=== PATIENT | male | born 2000 | race Caucasian/White ===

== ENCOUNTER 2018-02-26 13:35 | Emergency (ER) | payer OTHER ==
--- NOTE | 2018-02-26 13:44 | EDPHY ---
HPI/HX/ROS/PE/MDM - Data Points Imaging: Discussed imaging studies w/ call box wirer Radiologist, I viewed and interpreted images myself Narrative: CHIEF COMPLAINT: Testicular and RLQ pain HPI: The patient is a 18 y/o male with a history of epilepsy arriving from [facility] for evaluation of right testicular pain and RLQ pain that he noticed upon waking this morning. Pain does not feel like it's radiating from his testicle to his abdomen. He denies dysuria or other urinary complaints. No history of abdominal surgeries. REVIEW OF SYSTEMS: A comprehensive 10 system review of systems is otherwise negative aside from elements mentioned in the history of present illness. PMH: Epilepsy SOCIAL HISTORY: [employer] student. PHYSICAL EXAM: General:Patient is alert, in no acute distress. ENT:Eyes are normal to inspection. ENT inspection normal. Neck: Normal inspection. Full range of motion. Respiratory:No respiratory distress. Breath sounds normal bilaterally. Cardiovascular: Regular rate and rhythm. Strong peripheral pulses. Normal cap refill. Abdomen:The abdomen is nontender to palpation. There are no peritoneal signs. : Right hemiscrotum mildly swollen and tender, normal cremaster reflex, no erythema or warmth. Back: Normal to inspection. No tenderness to palpation. Skin: Normal color. No rash. Warm and dry. Extremities: Normal appearance. Full range of motion. Neuro: Oriented x3. Normal motor function. Normal sensory function. (Willis Chester) ED Course: 18 y/o male with history of epilepsy who presents with a few-hour history of right testicle and RLQ pain upon waking this morning. He has a mildly swollen right hemiscrotum with overlying tenderness. Abdomen is benign and vitals are normal. Suspect primary testicular etiology vs. appendicitis. Plan for IV, labs , UA, testicular and RLQ US. Patient declined pain medication. (Willis Chester) MDM: Care assumed at 2:45 p.m. With plan for disposition after ultrasound. At 3:[address] Sequeira calls ultrasound as epididymitis, no torsion, appendix not visualized. Results discussed with the patient at 3:30 p.m.; clinically I do not think appendicitis is likely. Ceftriaxone 250 and doxycycline times 10 days, GC and chlamydia sent on his urine. He is sexually active but not for several months. Does not have urethral discharge. Advised nonsteroidal and supportive underwear. Urology follow-up if not improving. Differential for etiology discussed including but not limited to trauma, inflammatory, infectious. Abdomen soft and nontender on my exam. (Prashant Edwards) - Data Points Imaging Results: Imaging Impressions Testicular Ultrasound 02/26/18 13:39 Impression: 1. Suggestion of right epididymitis. 2. Left varicocele. 3. Small to moderate right hydrocele. 4. By ultrasound, the appendix appears unremarkable. Findings and recommendations discussed with Willis Chester MD at 1501 hour, 02/26/2018. Abdomen Ultrasound 02/26/18 13:52 Impression: 1. Suggestion of right epididymitis. 2. Left varicocele. 3. Small to moderate right hydrocele. 4. By ultrasound, the appendix appears unremarkable. Findings and recommendations discussed with Willis Chester MD at 1501 hour, 02/26/2018. Laboratory Results: Laboratory Results 02/26/18 13:50 02/26/18 13:50 02/26/18 02/26/18 02/26/18 13:50 13:50 13:50 WBC RBC Hgb Hct MCV MCH MCHC RDW Plt Count MPV Neut % (Auto) Lymph % (Auto) [place] % (Auto) Eos % (Auto) Baso % (Auto) Nucleat RBC Rel Count Absolute Neuts (auto) Absolute Lymphs (auto) Absolute Monos (auto) Absolute Eos (auto) Absolute Basos (auto) Absolute Nucleated RBC Immature Gran % Immature Gran # Sodium 139 mEq/L mEq/L (135-145) Potassium 4.2 mEq/L mEq/L (3.5-5.2) Chloride 104 mEq/L mEq/L (97-110) Carbon Dioxide 25 mEq/l mEq/l (22-31) Anion Gap 10 mEq/L mEq/L (6-14) BUN 12 mg/dL mg/dL (7-23) Creatinine 0.7 mg/dL mg/dL (0.7-1.3) Estimated GFR > 60 Glucose 94 mg/dL mg/dL (70-100) Calcium 10.1 mg/dL mg/dL (8.5-10.4) Urine Color PALE YELLOW Urine Appearance CLEAR Urine pH 8.0 H (5.0-7.5) Ur Specific [place] 1.005 (1.002-1.030) Urine Protein NEGATIVE (NEGATIVE) Urine Ketones NEGATIVE (NEGATIVE) Urine Blood NEGATIVE (NEGATIVE) Urine Nitrate NEGATIVE (NEGATIVE) Urine Bilirubin NEGATIVE (NEGATIVE) Urine Urobilinogen NEGATIVE EU EU (0.2-1.0) Ur Leukocyte Esterase NEGATIVE (NEGATIVE) Urine Glucose NEGATIVE (NEGATIVE) C.trachomatis RNA (TMA) Pending N.gonorrhoeae RNA (TMA) Pending 02/26/18 13:50 WBC 7.63 10^3/uL 10^3/uL (3.80-9.50) RBC 5.28 10^6/uL 10^6/uL (4.40-6.38) Hgb 15.5 g/dL g/dL (13.7-17.5) Hct 46.0 % % (40.0-51.0) MCV 87.1 fL fL (81.5-99.8) MCH 29.4 pg pg (27.9-34.1) MCHC 33.7 g/dL g/dL (32.4-36.7) RDW 14.9 % % (11.5-15.2) Plt Count 295 10^3/uL 10^3/uL (150-400) MPV 9.6 fL fL (8.7-11.7) Neut % (Auto) 61.3 % % (39.3-74.2) Lymph % (Auto) 28.2 % % (15.0-45.0) [place] % (Auto) 9.0 % % (4.5-13.0) Eos % (Auto) 0.7 % % (0.6-7.6) Baso % (Auto) 0.7 % % (0.3-1.7) Nucleat RBC Rel Count 0.0 % % (0.0-0.2) Absolute Neuts (auto) 4.68 10^3/uL 10^3/uL (1.70-6.50) Absolute Lymphs (auto) 2.15 10^3/uL 10^3/uL (1.00-3.00) Absolute Monos (auto) 0.69 10^3/uL 10^3/uL (0.30-0.80) Absolute Eos (auto) 0.05 10^3/uL 10^3/uL (0.03-0.40) Absolute Basos (auto) 0.05 10^3/uL 10^3/uL (0.02-0.10) Absolute Nucleated RBC 0.00 10^3/uL 10^3/uL (0-0.01) Immature Gran % 0.1 % % (0.0-1.1) Immature Gran # 0.01 10^3/uL 10^3/uL (0.00-0.10) Sodium Potassium Chloride Carbon Dioxide Anion Gap BUN Creatinine Estimated GFR Glucose Calcium Urine Color Urine Appearance Urine pH Ur Specific [place] Urine Protein Urine Ketones Urine Blood Urine Nitrate Urine Bilirubin Urine Urobilinogen Ur Leukocyte Esterase Urine Glucose C.trachomatis RNA (TMA) N.gonorrhoeae RNA (TMA) Medications Given: Discontinued Medications Ibuprofen (Motrin) 600 mg PO EDNOW ONE Stop: 02/26/18 15:38 Last Admin: 02/26/18 15:45 Dose: 600 mg General Time Seen by Provider: 02/26/18 13:39 Initial Vital Signs: Initial Vital Signs Temperature (C) 36.5 C 02/26/18 13:36 Heart Rate 68 02/26/18 13:36 Respiratory Rate 16 02/26/18 13:36 Blood Pressure 125/67 H 02/26/18 13:36 O2 Sat (%) 98 02/26/18 13:36 O2 Delivery Mode Room Air Allergies/Adverse Reactions: No Known Allergies Allergy (Unverified 02/26/18 13:39) Home Medications: Medication Instructions Recorded Divalproex ER [Depakote ER 500 MG 1,000 mg PO DAILY 02/26/18 (*)] Doxycycline Hyclate [Doxycycline] 100 mg PO BID #20 cap 02/26/18 Ethosuximide 250 mg PO 02/26/18 Departure - Departure Disposition: Home, Routine, Self-Care Clinical Impression: Epididymitis Condition: Good Instructions: Epididymitis (ED) Referrals: rCistobal Devi MD [Medical Doctor] - 3-4 days, if not improved Prescriptions: Doxycycline Hyclate [Doxycycline] 100 mg PO BID #20 cap Report Scribed for: Willis Chester Report Scribed by: Arabella Park Date of Report: 02/26/18 Time of Report: 13:49 Physician Review and Approval Statement: Portions of this note were transcribed by an ED scribe. I personally performed the history, physical exam, and medical decision making; and confirm the accuracy of the information in the transcribed note.
[2018-02-26 14:13] LABS: PLATELET COUNT 295 10^3/uL (150-400)
[2018-02-26 15:34] VITALS: BP 126/65
[2018-02-26] MEDS ORDERED: IBUPROFEN 600 MG TAB PO ONE (15:37)
[2018-03-01 11:53] LABS: GC AMPLIFICATION GENPROBE NEGATIVE (NEGATIVE)
== END 2018-02-26 16:38 | disposition home or self-care (01) ==
DX: N45.1 Epididymitis (principal); I86.1 Scrotal varices; N43.3 Hydrocele, unspecified
CPT/HCPCS: J0696